=== PATIENT | male | born 1960 | race Caucasian/White ===

== ENCOUNTER 2017-10-07 19:42 | Emergency (ER) | payer MEDICAID ==
[~2017-10-07] VITALS: Ht 193 cm; Wt 110.6 kg
[2017-10-07] MEDS ORDERED: silver nitrate applicator stick TP ONE (20:50)
[2017-10-07 21:19] VITALS: BP 144/83
== END 2017-10-07 21:21 | disposition home or self-care (01) ==
LOC: ER 19:44
DX: I83.91 Asymptomatic varicose veins of right lower extremity (principal); I10 Essential (primary) hypertension; E11.9 Type 2 diabetes mellitus without complications; J45.909 Unspecified asthma, uncomplicated
CPT/HCPCS: 99283; A6449

== ENCOUNTER 2019-02-21 09:45 | Emergency (ER) | payer MEDICAID ==
[~2019-02-21] VITALS: Ht 193 cm; Wt 120.0 kg
[2019-02-21] MEDS ORDERED: methylPREDNISolone sod succ 125mg/2ml vial IV ONE (10:30)
[2019-02-21] MEDS ORDERED: normal saline 1000ML IV soln IVB ONE (10:30)
[2019-02-21 11:05] LABS: ABG BASE EXCESS 3.8 mmol/L (-2.0-3.0); ABG HCO3 28.5 mmol/L (22.0-26.0); ABG OXYGEN SATURATION 92.5 % (95-98); ABG PCO2 (T) 42.6 mmHg (35.0-48.0); ABG PH (T) 7.443 (7.350-7.450); ABG PO2 (T) 59.2 mmHg (83-108); ALLEN'S TEST Positive; FCOHb 3.6 % (0.5-1.5); FMetHb 0.2 % (0.3-1.12); TOTAL HEMOGLOBIN 19.3 G/dl (14.0-18.0)
[2019-02-21 11:10] LABS: BASOPHILS % (AUTO) 0.3 % (0-1); EOSINOPHILS # (AUTO) 0.2 X10'3 (0-0.9); HEMATOCRIT 53.8 % (42.0-52.0); LYMPHOCYTES # (AUTO) 0.7 X10'3 (1.1-4.8); LYMPHOCYTES % (AUTO) 6.8 % (21-51); MEAN CORPUSCULAR HEMOGLOBIN 32.1 PG (27.0-31.0); MEAN CORPUSCULAR HGB CONC 33.8 g/dL (33.0-36.5); MEAN PLATELET VOLUME 9.8 FL (7.4-10.4); MONOCYTES % (AUTO) 9.5 % (2-12); NEUTROPHILS # (AUTO) 8.3 X10'3 (1.8-7.7); NEUTROPHILS % (AUTO) 81.4 % (42-75); PLATELET COUNT 117 X10'3 (140-440); RED BLOOD COUNT 5.66 X10'6 (4.70-6.10); WHITE BLOOD COUNT 10.1 X10'3 (4.5-11.0)
[2019-02-21] MEDS ORDERED: albuterol 2.5 MG/3 ML nebule NEB ONE (11:10)
[2019-02-21 11:18] LABS: HEMOGLOBIN 18.2 g/dl (14.0-17.9)
[2019-02-21 11:23] LABS: ALANINE AMINOTRANSFERASE 34 U/L (12-78); ALBUMIN 3.7 G/DL (3.4-5.0); ALBUMIN/GLOBULIN RATIO 1.1 (1.1-1.5); ALKALINE PHOSPHATASE 78 IU/L (46-116); ANION GAP 5 (8-16); ASPARTATE AMINO TRANSFERASE 14 U/L (10-37); BILIRUBIN,TOTAL 0.7 MG/DL (0.1-1.0); BLOOD UREA NITROGEN 12 MG/DL (7-18); BUN/CREATININE RATIO 13.2 (5.4-32.0); CALCIUM 8.7 MG/DL (8.5-10.1); CHLORIDE 105 MMOL/L (99-107); CREATININE 0.91 MG/DL (0.60-1.10); GLUCOSE 128 MG/DL (70-104); SODIUM 140 MMOL/L (135-145); TOTAL CARBON DIOXIDE 29.9 MMOL/L (24-32); TOTAL PROTEIN 7.2 G/DL (6.4-8.2); eGFR 85 ML/MIN
[2019-02-21] MEDS ORDERED: ipratropium/albuterol 3ml nebule NEB ONE (12:00)
[2019-02-21] MEDS ORDERED: PRED20TA PO (13:04)
[2019-02-21] MEDS ORDERED: DOXY100C43 PO (13:04)
[2019-02-21 13:19] VITALS: BP 150/63
--- NOTE | 2019-02-21 13:21 | NUR ---
JOSE A HATFIELD AWARE OF PT VITALS SPO2 92 ON ROOM AIR ON DISCHARGE.JOSE A HATFIELD SPOKE TO PT BEFORE HE GOT DISCHARGE REGARDING QUITTING THE SMOKING AND FOLLOW UP APPOINTMENT WITH PCP.
== END 2019-02-21 13:24 | disposition home or self-care (01) ==
LOC: ER 09:46
DX: J45.909 Unspecified asthma, uncomplicated (principal); I10 Essential (primary) hypertension; E11.9 Type 2 diabetes mellitus without complications; Z88.1 Allergy status to other antibiotic agents; Z79.899 Other long term (current) drug therapy
CPT/HCPCS: 36415; 36600; 71045; 80053; 82803; 85018; 85025; 85610; 93005; 94640; 94760; 96374; 99284; J2930; J7030

== ENCOUNTER 2021-12-06 08:59 | Emergency (ER) | payer MEDICAID ==
[~2021-12-06] VITALS: Ht 193 cm; Wt 118.2 kg
[~2021-12-06 08:59] MED LIST: FLO0.4C PO; HYDR-3965 PO; ONDA8TAB13 PO
[2021-12-06 09:46] LABS: BASOPHILS % (AUTO) 0.7 % (0-1); EOSINOPHILS # (AUTO) 0.4 X10'3 (0-0.9); EOSINOPHILS % (AUTO) 5.7 % (0-6); HEMATOCRIT 37.5 % (42.0-52.0); HEMOGLOBIN 11.9 g/dl (14.0-17.9); LYMPHOCYTES # (AUTO) 0.7 X10'3 (1.1-4.8); LYMPHOCYTES % (AUTO) 10.3 % (21-51); MEAN CORPUSCULAR HEMOGLOBIN 28.2 PG (27.0-31.0); MEAN CORPUSCULAR HGB CONC 31.7 g/dL (33.0-36.5); MEAN PLATELET VOLUME 9.6 FL (7.4-10.4); MONOCYTES # (AUTO) 0.8 X10'3 (0-0.9); NEUTROPHILS # (AUTO) 4.5 X10'3 (1.8-7.7); NEUTROPHILS % (AUTO) 71.3 % (42-75); PLATELET COUNT 184 X10'3 (140-440); RED BLOOD COUNT 4.22 X10'6 (4.70-6.10); RED CELL DISTRIBUTION WIDTH 14.7 % (11.5-14.5); WHITE BLOOD COUNT 6.4 X10'3 (4.5-11.0)
[2021-12-06 09:59] LABS: ALANINE AMINOTRANSFERASE 25 U/L (12-78); ALBUMIN 3.3 G/DL (3.4-5.0); ALBUMIN/GLOBULIN RATIO 1.1 (1.1-1.5); ALKALINE PHOSPHATASE 55 IU/L (46-116); ANION GAP 5 (8-16); ASPARTATE AMINO TRANSFERASE 13 U/L (10-37); BILIRUBIN,TOTAL 0.3 MG/DL (0.1-1.0); BLOOD UREA NITROGEN 20 MG/DL (7-18); BUN/CREATININE RATIO 13.1 (5.4-32.0); CALCIUM 8.7 MG/DL (8.5-10.1); CHLORIDE 108 MMOL/L (99-107); CREATININE 1.53 MG/DL (0.60-1.10); GLUCOSE 185 MG/DL (70-104); POTASSIUM 5.1 MMOL/L (3.5-5.1); SODIUM 143 MMOL/L (135-145); TOTAL CARBON DIOXIDE 29.7 MMOL/L (24-32); TOTAL PROTEIN 6.3 G/DL (6.4-8.2); eGFR 47 ML/MIN
[2021-12-06] MEDS ORDERED: ondansetron/PF 4mg/2ml inj IV ONE (10:10)
[2021-12-06] MEDS ORDERED: normal saline 1000ML IV soln IVB ONE (10:10)
[2021-12-06] MEDS ORDERED: morphine 4 MG/ML inj SYRINge IV PRN (10:10)
[2021-12-06] MEDS ORDERED: oxyCODONE/APAP 5-325mg tablet PO ONE (10:30)
[2021-12-06 10:58] LABS: CLARITY,URINE CLEAR (Clear); COLOR,URINE YELLOW (Yellow); GLUCOSE, URINE 250 mg/dl (Neg); KETONES,URINE NEGATIVE (Neg); LEUKOCYTE ESTERASE ,URINE NEGATIVE (Neg); NITRITES, URINE NEGATIVE (Neg); OCCULT BLOOD,URINE MODERATE (Neg); PROTEIN,URINE NEGATIVE (Neg); UROBILINOGEN,URINE 0.2 E.U/dL (0.2-1.0)
[2021-12-06 11:04] LABS: UA COLLECTION TYPE NON-SPECIFIED
[2021-12-06 11:06] LABS: BACTERIA,URINE NONE SEEN /HPF (Neg); MUCUS STRANDS NONE SEEN /LPF (Neg); RBC,URINE 50-100 /HPF (0-2); SQUAMOUS EPITHELIAL CELL,UR FEW /LPF (FEW)
[2021-12-06 11:45] VITALS: BP 141/87
[2021-12-06] MEDS ORDERED: NAPR-56 PO (11:46)
[2021-12-06] MEDS ORDERED: FLO0.4C PO (11:46)
[2021-12-06] MEDS ORDERED: LORA-269 PO (11:46)
[2021-12-06] MEDS ORDERED: OXYC-145 PO (11:46)
--- NOTE | 2021-12-06 11:48 | NUR ---
Pt and given and understands d/c instructions. IV d/c'd, catheter was intact. Ambulatory with a slow steady gait.
== END 2021-12-06 11:48 | disposition home or self-care (01) ==
LOC: ER 08:59
DX: N20.0 Calculus of kidney (principal); N13.30 Unspecified hydronephrosis; N23 Unspecified renal colic; I10 Essential (primary) hypertension; J45.909 Unspecified asthma, uncomplicated; E11.9 Type 2 diabetes mellitus without complications; Z87.442 Personal history of urinary calculi; Z88.1 Allergy status to other antibiotic agents; Z79.899 Other long term (current) drug therapy
CPT/HCPCS: 36415; 76770; 80053; 81001; 85025; 87088; 96361; 96374; 96375; 99284; J2270; J2405; J7030

== ENCOUNTER 2022-10-21 11:59 | Emergency (ER) | payer MEDICAID ==
[~2022-10-21] VITALS: Ht 193 cm; Wt 109.1 kg
[~2022-10-21 11:59] MED LIST changes: -FLO0.4C PO; -HYDR-3965 PO; +LORA-269 PO; +OXYC-145 PO
[2022-10-21 12:27] LABS: BASOPHILS # (AUTO) 0.1 X10'3 (0-0.2); EOSINOPHILS # (AUTO) 0.4 X10'3 (0-0.9); HEMATOCRIT 36.9 % (42.0-52.0); HEMOGLOBIN 11.4 g/dl (14.0-17.9); LYMPHOCYTES % (AUTO) 16.9 % (21-51); MEAN CORPUSCULAR HEMOGLOBIN 24.1 PG (27.0-31.0); MEAN CORPUSCULAR VOLUME 77.6 FL (78-98); MEAN PLATELET VOLUME 8.5 FL (7.4-10.4); MONOCYTES # (AUTO) 0.8 X10'3 (0-0.9); MONOCYTES % (AUTO) 13.3 % (2-12); NEUTROPHILS # (AUTO) 3.7 X10'3 (1.8-7.7); NEUTROPHILS % (AUTO) 62.8 % (42-75); PLATELET COUNT 193 X10'3 (140-440); RED BLOOD COUNT 4.75 X10'6 (4.70-6.10); RED CELL DISTRIBUTION WIDTH 17.9 % (11.5-14.5); WHITE BLOOD COUNT 5.9 X10'3 (4.5-11.0)
[2022-10-21 12:40] LABS: APTT 27 SECONDS (22-32)
[2022-10-21 12:41] LABS: ALANINE AMINOTRANSFERASE 20 U/L (12-78); ALBUMIN 3.9 G/DL (3.4-5.0); ALBUMIN/GLOBULIN RATIO 1.3 (1.1-1.5); ALKALINE PHOSPHATASE 68 IU/L (46-116); ANION GAP 4 (8-16); ASPARTATE AMINO TRANSFERASE 20 U/L (10-37); BILIRUBIN,TOTAL 0.3 MG/DL (0.1-1.0); BLOOD UREA NITROGEN 24 MG/DL (7-18); BUN/CREATININE RATIO 27.6 (5.4-32.0); CHLORIDE 105 MMOL/L (99-107); CREATININE 0.87 MG/DL (0.60-1.10); GLUCOSE 114 MG/DL (70-104); POTASSIUM 4.2 MMOL/L (3.5-5.1); SODIUM 142 MMOL/L (135-145); TOTAL CARBON DIOXIDE 33.3 MMOL/L (24-32); eGFR 89 ML/MIN
[2022-10-21] MEDS ORDERED: ketorolac trometh inj. 60 MG/2 ML VIAL IM ONE (15:10)
[2022-10-21] MEDS ORDERED: LORazepam 1 MG tablet PO ONE (17:00)
[2022-10-21] MEDS ORDERED: IBUP-1986 PO (19:07)
[2022-10-21] MEDS ORDERED: TRAM1TAB7 PO (19:07)
[2022-10-21 19:15] VITALS: BP 110/66
== END 2022-10-21 19:18 | disposition home or self-care (01) ==
LOC: ER 12:01
DX: M25.552 Pain in left hip (principal); I10 Essential (primary) hypertension; J45.909 Unspecified asthma, uncomplicated; E11.9 Type 2 diabetes mellitus without complications; F17.200 Nicotine dependence, unspecified, uncomplicated; Z88.1 Allergy status to other antibiotic agents; Z91.041 Radiographic dye allergy status
CPT/HCPCS: 36415; 70450; 71045; 72170; 73721; 80053; 82948; 85025; 85610; 85730; 93005; 96372; 99285; J1885